=== PATIENT | male | born 1945 | race Hispanic/Latino ===

== ENCOUNTER 2020-11-07 09:45 | Day surgery (SDC) | payer MEDICARE ==
[~2020-11-07 09:45] MED LIST: SODIUM CHLORIDE 0.9% 1000 ML 1,000 ML IV SCH
[2020-11-07] MEDS ORDERED: ONDANSETRON 4 MG/2 ML INJ ONE (10:44)
[2020-11-07] MEDS ORDERED: LIDOCAINE MPF (2%) 20 MG/1 ML VIAL 5 ML ONE (10:44)
[2020-11-07] MEDS ORDERED: fentaNYL 100 MCG/2 ML INJ ONE (10:45)
[2020-11-07] MEDS ORDERED: propofoL 200 MG/20 ML VIAL IV ONE (10:45)
--- NOTE | 2020-11-07 11:02 | Procedure Note ---
Date of procedure: 11/07/20 Pre-op diagnosis: Dyspepsia/ Atrophic Gastritis Post-op diagnosis: other (Mild to moderate Erosive Esophagitis/ Hiatal Hernia/ Atrophic Gastritis/ R/O Atrophic Gastritis/ Mild Duodenitis) Anesthesia: MAC Surgeon: NELDA OLVERA Estimated blood loss: minimal Pathology: list Specimen disposition: to lab Condition: stable Disposition: same day (Treat with PPI. Avoid aspirin, NSAID and anticoagulants for 4 days; otherwise resume home medication. Follow up in 1 to 2 weeks ([phone]).)
--- NOTE | 2020-11-07 11:33 | Anesthesia Day of Surgery ---
Anesthesia Day of Surgery - Day of Surgery Patient Examined: Yes Patient H&P Reviewed: Yes Patient is NPO: Yes
--- NOTE | 2020-11-07 11:33 | Post Anesthesia Evaluation ---
- Post Anesthesia Evaluation Patient Participated: Yes Airway Patent: Yes Stable Respiratory Function: Yes Nausea/Vomiting: No Temp > 96.8F: Yes Pain Manageable: Yes Adequeate Hydration: Yes Anesthesia Complications: No
--- NOTE | 2020-11-07 11:33 | Anesthesia Consultation ---
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
[2020-11-07 11:49] VITALS: BP 133/56
--- NOTE | 2020-11-21 19:27 | Operative Report ---
DATE OF SURGERY: 11/07/2020 PROCEDURE: EGD with biopsy. INDICATIONS: This is a 75-year-old white male who has an underlying history of a large hiatal hernia and associated atrophic gastritis. He has been advised to take vitamin B12 as a monthly injection. Previously, he was taking it as an oral injection. EGD was done. DESCRIPTION OF PROCEDURE: After getting informed consent with MAC anesthesia. The instrument was passed through the hypopharynx into the esophagus, which showed [id number] erosive esophagitis. Biopsy was done from the distal esophagus. Stomach showed a hiatal hernia as well as gastritis. Biopsy was done from the gastric antrum, gastric body and angular incisura to rule out for H. pylori and atrophic gastritis. The pylorus was patent. The duodenum in the bulb showed duodenitis. Second portion appeared normal. There was minimal bleeding associated with the procedure. No complications associated with the procedure. ASSESSMENT: Dyspepsia, mild to moderate erosive esophagitis, hiatal hernia, atrophic gastritis, rule out Helicobacter pylori gastritis, mild duodenitis. PLAN: To treat the patient with PPI. The patient has been advised about lifestyle changes regarding his hiatal hernia. His medications will also be adjusted according to the biopsy findings. The patient will be advised to avoid aspirin and aspirin-related products for the next few days. Resume home medication and follow up in the office in 1-2 weeks' time. TID: [id number] RECEIPT: [id number] GISSELL/JOSE/KARLIE
== END 2020-11-07 12:10 | disposition home or self-care (01) ==
LOC: GIO 09:45
DX: R10.13 Epigastric pain (principal); K44.9 Diaphragmatic hernia without obstruction or gangrene; K21.00 Gastro-esophageal reflux disease with esophagitis, without bleeding; B96.81 Helicobacter pylori [H. pylori] as the cause of diseases classified elsewhere; K29.50 Unspecified chronic gastritis without bleeding; K31.89 Other diseases of stomach and duodenum; I10 Essential (primary) hypertension; I25.10 Atherosclerotic heart disease of native coronary artery without angina pectoris; E78.00 Pure hypercholesterolemia, unspecified; Z79.899 Other long term (current) drug therapy; Z98.890 Other specified postprocedural states
CPT/HCPCS: 43239; 88305; 88342; J2405; J2704; J3010; J7030